=== PATIENT | female | born 1955 | race Caucasian/White ===

== ENCOUNTER 2019-04-11 10:33 | Emergency (ER) | payer BC ==
--- NOTE | 2019-04-11 11:40 | CT ---
Head CT Technique: Multiple axial sections through the brain were obtained. Intravenous contrast was not utilized. Comparison: Prior MRI brain of 12/08/11. Findings: Ventricles along with basal cisterns and sulci over the convexities are within normal limits for the patient's age. No abnormal parenchymal densities are seen. No evidence of intracranial hemorrhage. No midline shift or mass effect is seen. Bone window settings were reviewed which show no acute calvarial abnormality. Visualized sinuses are clear. Impression: 1. Nothing acute is appreciated on noncontrast head CT exam. No change is identified from prior MRI brain study. Diagnostic code #1
--- NOTE | 2019-04-11 11:45 | EDM.PDOC ---
ED HPI GENERAL MEDICAL PROBLEM - General Chief Complaint: Neurological Problem Stated Complaint: DIZZY WITH NUMBNESS TO TEETH AND LIPS SENT BY [facility] Time Seen by Provider: 04/11/19 11:44 Source of Information: Reports: Patient, RN Notes Reviewed History Limitations: Reports: No Limitations - History of Present Illness INITIAL COMMENTS - FREE TEXT/NARRATIVE: Patient is a 64-year-old female who presents to the ED for the evaluation of dizziness and numbness to her upper lip. The patient noticed this dizziness to start Tuesday. She states that she normally gets some upper lip tingling and numbness when she is going to have a migraine, as this is the trigger and she knows a migraine is coming. She states she did have a migraine most of Tuesday , however the headache has subsided since then. The patient has noticed some continued dizziness, she characterizes this as world spinning dizziness and is unsure of where her feet are. She denies any recent illnesses. She denies any other recent med changes, however she states that she did get a new glasses prescription, with one lens being stronger than the other roughly 1 month ago and has been having issues with her eyes since then. The patient notes that there is no pain with her upper lip numbness and tingling. She states that she has some mild allergic vision from time to time, but no double vision. The patient's primary care provider is Marie Wise. The patient states that she has a history of vertigo, and her symptoms are similar to vertigo in the past however the lip numbness and tingling was the only different issue. She did take some meclizine on Tuesday, and this seemed to help alleviate the symptoms as well. She does note that from laying to sitting she does get dizzy, and it takes a little bit of time to get her bearings before she feels ready to move. - Related Data Allergies Allergy/AdvReac Type Severity Reaction Status Date / Time No Known Allergies Allergy Verified 04/11/19 10:41 Home Meds: Home Meds Amitriptyline [Elavil] 50 mg PO BEDTIME 04/17/15 [History] Levothyroxine [Synthroid] 88 mcg PO DAILY 04/17/15 [History] Glycopyrrolate [Robinul] 1 mg PO BID 04/11/19 [History] Multivitamin with Minerals [Multiple Vitamin] 1 tab PO DAILY 04/11/19 [History] Omeprazole 40 mg PO ASDIRECTED 04/11/19 [History] amLODIPine Besylate [Amlodipine Besylate] 5 mg PO DAILY 04/11/19 [History] Past Medical History HEENT History: Reports: Impaired Vision Other HEENT History: wears eyeglasses. 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 Musculoskeletal Surgical History: Reports: Arthroscopic Knee, Other (See Below) Other Musculoskeletal Surgeries/Procedures:: foot surgery Social & Family History - Tobacco Use Smoking Status *Q: Never Smoker Second Hand Smoke Exposure: No - Caffeine Use Caffeine Use: Reports: Coffee - Alcohol Use Days Per Week of Alcohol Use: 2 Number of Drinks Per Day: 1 Total Drinks Per Week: 2 - Recreational Drug Use Recreational Drug Use: No ED ROS GENERAL - Review of Systems Review Of Systems: See Below Constitutional: Denies: Fever, Chills HEENT: Reports: Glasses, Vertigo, Other (upper lip numbness/tingling) Respiratory: Reports: No Symptoms Cardiovascular: Reports: No Symptoms Endocrine: Reports: No Symptoms GI/Abdominal: Reports: No Symptoms : Reports: No Symptoms Musculoskeletal: Reports: No Symptoms Skin: Reports: No Symptoms Neurological: Reports: Dizziness (hx/ of vertigo), Headache (hx/o migraines, no headache today), Numbness, Tingling Psychiatric: Reports: No Symptoms Hematologic/Lymphatic: Reports: No Symptoms Immunologic: Reports: No Symptoms ED EXAM, NEURO - Physical Exam Exam: See Below Exam Limited By: No Limitations General Appearance: Alert, WD/WN, No Apparent Distress Eye Exam: Left Eye: Nystagmus (3-4 tics of leftward nystagmus), Bilateral Eye: EOMI, Normal Inspection, PERRL Ears: Normal External Exam, Normal Canal, Hearing Grossly Normal, Normal TMs Nose: Normal Inspection Throat/Mouth: Normal Inspection, Normal Lips, Normal Teeth, Normal Gums, Normal Oropharynx, Normal Voice, No Airway Compromise Head Exam: Atraumatic, Normocephalic Neck: Normal Inspection Respiratory/Chest: No Respiratory Distress, Lungs Clear, Normal Breath Sounds, No Accessory Muscle Use, Chest Non-Tender Cardiovascular: Normal Peripheral Pulses, Regular Rate, Rhythm, No Murmur Neurological: Alert, Normal Mood/Affect, Normal Dorsiflexion, CN II-XII Intact, Normal Plantar Flexion, Normal Gait, Normal Reflexes, No Motor/Sensory Deficits , Oriented x 3 Extremities: Normal Inspection, Normal Capillary Refill Psychiatric: Normal Affect, Normal Mood Skin Exam: Warm, Dry, Intact, Normal Color, No Rash Course - Vital Signs Last Recorded V/S: Last Vital Signs Temp 96.6 F 04/11/19 10:35 Pulse 75 04/11/19 10:35 Resp 20 04/11/19 10:35 BP 146/114 H 04/11/19 10:35 Pulse Ox 97 04/11/19 10:35 - Re-Assessments/Exams Free Text/Narrative Re-Assessment/Exam: 04/11/19 12:04 Patient presents to the ED for the evaluation of dizziness and upper lip tingling. A head CT was obtained to rule out any other neurological abnormalities, and this was within normal limits nothing acute was appreciated on this noncontrast head CT exam. The patient's symptoms are most likely consistent with vertigo. She states that she has some meclizine at home and will try that, she states that she also has a chiropractor appointment today, and he can also help her with vertigo symptoms as he has done in the past. The patient is also going to go to the eye doctor to have her glasses adjusted again and make sure that there is no residual issues from that. Departure - Departure Time of Disposition: 12:05 Disposition: Home, Self-Care 01 Condition: Fair Clinical Impression: Vertigo - Discharge Information *PRESCRIPTION DRUG MONITORING PROGRAM REVIEWED*: No *COPY OF PRESCRIPTION DRUG MONITORING REPORT IN PATIENT TAMMY: No Instructions: Vertigo, [id number] Referrals: Marie Wise NP [Primary Care Provider] - Forms: ED Department Discharge Additional Instructions: You have been evaluated in the ED today for your dizziness and upper lip tingling. Your head CT did not demonstrate any acute abnormalities at this ED visit. You are not having a stroke or any other neurological abnormality at this time. Your symptoms are consistent with vertigo. Please take your meclizine as previously directed for vertigo symptoms. The etiology of your lip numbness and tingling is unclear, however if this should persist recommend that you seek evaluation, for possible steroid burst. Please return to the ED if your symptoms should change or worsen.
== END 2019-04-11 13:00 | disposition home or self-care (01) ==
LOC: JD.ED 10:33
DX: R42 Dizziness and giddiness (principal); R20.0 Anesthesia of skin; I10 Essential (primary) hypertension; E03.9 Hypothyroidism, unspecified; K21.9 Gastro-esophageal reflux disease without esophagitis; Z86.2 Personal history of diseases of the blood and blood-forming organs and certain disorders involving the immune mechanism; Z79.899 Other long term (current) drug therapy
CPT/HCPCS: 70450; 70450-26; 99283; 99284-25

== ENCOUNTER 2024-10-07 09:23 | Emergency (ER) | payer MEDICARE, BC ==
[2024-10-07] MEDS: Sodium Chloride 0.9% 10 ML Syringe FLUSH PRN (11:37)
[2024-10-07] MEDS: Sodium Chloride 0.9% 1,000 ML IV ONE (11:40)
[2024-10-07 11:49] LABS: BASOPHILS PERCENT AUTO 0.3 % (0.0-1.0); EOSINOPHILS ABSOLUTE AUTO 0.1 K/mm3 (0.0-0.4); EOSINOPHILS PERCENT AUTO 0.8 % (0.0-6.0); HEMATOCRIT 42.6 % (37.0-47.0); IMMATURE GRAN ABSOLUTE AUTO 0.01 K/mm3 (0.00-0.05); IMMATURE GRAN PERCENT AUTO 0.2 % (0.0-0.4); LYMPHOCYTES PERCENT AUTO 16.1 % (24.0-44.0); MEAN CORPUSCULAR HEMOGLOBIN 30.3 pg (28.0-32.0); MEAN CORPUSCULAR HGB CONC 32.9 g/dl (32.0-36.0); MEAN CORPUSCULAR VOLUME 92.2 fl (83.0-99.0); MEAN PLATELET VOLUME 9.7 fl (9.4-12.3); MONOCYTES ABSOLUTE AUTO 0.5 K/mm3 (0.0-0.8); MONOCYTES PERCENT AUTO 7.2 % (0.0-8.0); NEUTROPHILS ABSOLUTE AUTO 4.7 K/mm3 (1.8-7.7); NEUTROPHILS PERCENT AUTO 75.4 % (41.0-71.0); PLATELET COUNT,PLT 232 K/mm3 (150-400); RED BLOOD CELL COUNT 4.62 M/mm3 (4.10-5.30); WHITE BLOOD CELL COUNT,WBC 6.21 K/mm3 (3.9-11.3)
[2024-10-07 11:53] LABS: APPEARANCE,URINE CLEAR (Clear); BILIRUBIN,URINE NEGATIVE (Negative); COLOR,URINE YELLOW (Yellow); GLUCOSE,URINE NEGATIVE (Negative); KETONES,URINE NEGATIVE (Negative); LEUKOCYTE ESTERASE,URINE TRACE (Negative); NITRITE,URINE NEGATIVE (Negative); OCCULT BLOOD,URINE NEGATIVE (Negative); PH,URINE 6.5 (5.0-8.0); PROTEIN,URINE NEGATIVE (Negative); UROBILINOGEN,URINE 0.2 (0.2-1.0)
[2024-10-07 12:33] LABS: A/G RATIO 1.2 (1-2); ALBUMIN 3.6 g/dl (3.4-5.0); ANION GAP 12.6 (5-15); BILIRUBIN TOTAL 0.4 mg/dL (0.2-1.0); CALCIUM 8.3 mg/dL (8.5-10.1); CREATININE 1.2 mg/dL (0.55-1.02); EST CRCL DRUG DOSING (CG) 39.28 mL/min; MAGNESIUM 1.8 mg/dL (1.8-2.4); POTASSIUM,K 3.6 mEq/L (3.5-5.1); PROTEIN TOTAL,TP 6.5 g/dl (6.4-8.2)
[2024-10-07 12:35] LABS: TSH 5.83 uIU/mL (0.358-3.74)
[2024-10-07 12:41] LABS: RBC,URINE 0-5 /hpf (0-5); WBC,URINE 0-5 /hpf (0-5)
[2024-10-07 12:42] LABS: BACTERIA,URINE FEW /hpf (FEW); EPITHELIAL CELLS,URINE 0-5 /hpf (0-5); MUCUS,URINE NOT SEEN /hpf (FEW)
[2024-10-07 12:51] LABS: T4 FREE 0.85 ng/dL (0.76-1.46)
[2024-10-07] MEDS: Ondansetron 4 MG/2 ML SDV IVPUSH ONE (13:29)
== END 2024-10-07 13:40 | disposition home or self-care (01) ==
LOC: JD.ED 09:23
DX: R51.9 Headache, unspecified (principal); R42 Dizziness and giddiness; E86.0 Dehydration; R79.89 Other specified abnormal findings of blood chemistry; E83.51 Hypocalcemia; I10 Essential (primary) hypertension; E03.9 Hypothyroidism, unspecified; Z79.890 Hormone replacement therapy; Z79.899 Other long term (current) drug therapy
CPT/HCPCS: 36415; 70450; 71045; 80053; 81001; 83735; 84439; 84443; 85025; 87086; 93005; 96361; 96374; 99284; J2405; J3490; J7030

== ENCOUNTER 2025-06-14 12:40 | Emergency (ER) | payer MEDICARE, BC ==
[2025-06-14 14:15] LABS: BASOPHILS ABSOLUTE AUTO 0.0 K/mm3 (0.0-0.2); BASOPHILS PERCENT AUTO 0.4 % (0.0-1.0); EOSINOPHILS ABSOLUTE AUTO 0.1 K/mm3 (0.0-0.4); EOSINOPHILS PERCENT AUTO 1.4 % (0.0-6.0); IMMATURE GRAN ABSOLUTE AUTO 0.02 K/mm3 (0.00-0.05); IMMATURE GRAN PERCENT AUTO 0.4 % (0.0-0.4); LYMPHOCYTES ABSOLUTE AUTO 1.0 K/mm3 (1.0-4.8); LYMPHOCYTES PERCENT AUTO 17.8 % (24.0-44.0); MEAN PLATELET VOLUME 9.8 fl (9.4-12.3); MONOCYTES ABSOLUTE AUTO 0.4 K/mm3 (0.0-0.8); MONOCYTES PERCENT AUTO 6.5 % (0.0-8.0); NEUTROPHILS ABSOLUTE AUTO 4.2 K/mm3 (1.8-7.7); NEUTROPHILS PERCENT AUTO 73.5 % (41.0-71.0); NRBC ABSOLUTE 0.00 (0.00-0.02); NRBC PERCENT 0.0 % (0.0-0.2); PLATELET COUNT,PLT 173 K/mm3 (150-400); RED BLOOD CELL COUNT 4.49 M/mm3 (4.10-5.30); WHITE BLOOD CELL COUNT,WBC 5.67 K/mm3 (3.9-11.3)
[2025-06-14 14:34] LABS: A/G RATIO 1.2 (1-2); ALANINE AMINOTRANSFERASE,ALT 20.0 U/L (14-59); ASPARTATE AMNIOTRANSFERASE,AST 12.0 U/L (15-37); BILIRUBIN TOTAL 0.3 mg/dL (0.2-1.0); BLOOD UREA NITROGEN,BUN 13.0 mg/dL (7-18); CARBON DIOXIDE,CO2 27.0 mEq/L (21-32); CHLORIDE,CL 109.0 mEq/L (98-107); CREATININE 1.0 mg/dL (0.55-1.02); EST CRCL DRUG DOSING (CG) 46.5 mL/min; ESTIMATED GFR 61.0 mL/min (>60); GLUCOSE RANDOM 81.0 mg/dL (70-99); POTASSIUM,K 3.8 mEq/L (3.5-5.1); PROTEIN TOTAL,TP 6.2 g/dl (6.4-8.2); SODIUM,NA 144.0 mEq/L (136-145)
== END 2025-06-14 14:45 | disposition home or self-care (01) ==
LOC: JD.ED 12:40
DX: S46.211A Strain of muscle, fascia and tendon of other parts of biceps, right arm, initial encounter (principal); M54.32 Sciatica, left side; G47.62 Sleep related leg cramps; I10 Essential (primary) hypertension; E03.9 Hypothyroidism, unspecified; Z79.890 Hormone replacement therapy; Z79.899 Other long term (current) drug therapy; X50.0XXA Overexertion from strenuous movement or load, initial encounter
CPT/HCPCS: 36415; 80053; 83735; 85025; 99283